=== PATIENT | female | born 1955 ===

== ENCOUNTER → 2024-12-17 | Outpatient (CLI) | payer OTHER ==
[2024-12-17 13:57] LABS: BASOPHILS ABSOLUTE AUTO 0.05 K/mm3 (0.00-0.23); BASOPHILS PERCENT AUTO 0 % (0-2); EOSINOPHILS ABSOLUTE AUTO 0.01 K/mm3 (0.00-0.68); EOSINOPHILS PERCENT AUTO 0 % (0-6); Hematocrit 41.5 % (33.0-51.0); Hemoglobin 14.3 g/dL (11.5-16.0); IMMATURE GRAN PERCENT AUTO 1 % (0-1); LYMPHOCYTES PERCENT AUTO 7 % (21-46); MONOCYTES ABSOLUTE AUTO 0.82 K/mm3 (0.16-1.47); MONOCYTES PERCENT AUTO 7 % (4-13); Mean Corpuscular HGB 29.9 pg (26.0-34.0); Mean Corpuscular HGB Conc 34.5 g/dL (31.5-36.5); Mean Corpuscular Volume 87 fL (80-100); Mean Platelet Volume 11.3 fL (9.1-12.4); NEUTROPHILS ABSOLUTE AUTO 10.49 K/mm3 (1.96-9.15); NEUTROPHILS PERCENT AUTO 85 % (41-73); Platelet Count 282 K/mm3 (150-400); RDW Coefficient Variation 12.1 % (11.7-14.2); RDW Standard Deviation 38.7 fL (35.1-46.3); Red Blood Cell Count 4.78 M/mm3 (3.80-5.20); White Blood Cell Count 12.37 K/mm3 (4.00-11.30)
[2024-12-17 14:12] LABS: Albumin, Blood 2.8 g/dL (3.4-5.0); Albumin/Globulin Ratio 0.6 (0.8-1.8); Bilirubin, Total 0.8 mg/dL (0.1-1.0); Bun/Creatinine Ratio 9.6 (12.0-20.0); Calcium, Blood 9.6 mg/dL (8.5-10.1); Creatinine, Blood 1.04 mg/dL (0.40-1.00); Globulin, Blood 4.4 g/dL (2.2-4.0); Total Protein, Blood 7.2 g/dL (6.4-8.2)
== END ==
LOC: LAB SHORT 13:50 → LAB 13:50
PROVIDERS: Family Medicine
DX: N39.0 Urinary tract infection, site not specified (principal); R53.83 Other fatigue
CPT/HCPCS: 80053; 85025; 87086

== ENCOUNTER → 2025-01-28 | Outpatient (CLI) | payer OTHER ==
[2025-01-28 21:59] LABS: Creatinine, Urine Random 240.0 mg/dL (27.00-270.00); Microalb/Creat Ratio UR, Rand 10.917 mg/g (0.000-30.000); Microalbumin, Random Urine 26.2 mg/L (0.000-20.000)
== END ==
LOC: LAB 18:04 → LAB SHORT 18:04
PROVIDERS: Family Medicine
DX: E11.36 Type 2 diabetes mellitus with diabetic cataract (principal); E11.42 Type 2 diabetes mellitus with diabetic polyneuropathy; E11.59 Type 2 diabetes mellitus with other circulatory complications
CPT/HCPCS: 82043; 82570

== ENCOUNTER → 2025-03-28 | Outpatient (CLI) | payer OTHER ==
[~2025-03-28] MED LIST: ASPI81CH PO; ATOR10 PO; ATOR40TA PO; Acetaminophen325 M1 PO; BUPROPION XL150 M1 PO; CENTRUM SILVER1 EAC2 PO; CLOP75 PO; FURO20 PO; GLUC500 PO; LISI20 PO; METF500 PO; METO25 PO; PIOG30 PO; Prinivil10 MG PO; TOUJEO MAX300 UNIT/2 SC
[2025-03-28 13:11] LABS: BASOPHILS ABSOLUTE AUTO 0.07 K/mm3 (0.00-0.23); BASOPHILS PERCENT AUTO 1 % (0-2); EOSINOPHILS ABSOLUTE AUTO 0.32 K/mm3 (0.00-0.68); EOSINOPHILS PERCENT AUTO 2 % (0-6); Hematocrit 44.9 % (33.0-51.0); Hemoglobin 14.4 g/dL (11.5-16.0); IMMATURE GRAN ABSOLUTE AUTO 0.09 K/mm3 (0.00-0.10); IMMATURE GRAN PERCENT AUTO 1 % (0-1); LYMPHOCYTES ABSOLUTE AUTO 1.25 K/mm3 (0.84-5.20); LYMPHOCYTES PERCENT AUTO 9 % (21-46); MONOCYTES ABSOLUTE AUTO 1.15 K/mm3 (0.16-1.47); MONOCYTES PERCENT AUTO 8 % (4-13); Mean Corpuscular HGB Conc 32.1 g/dL (31.5-36.5); Mean Corpuscular Volume 84 fL (80-100); NEUTROPHILS ABSOLUTE AUTO 10.97 K/mm3 (1.96-9.15); NEUTROPHILS PERCENT AUTO 79 % (41-73); NRBC ABSOLUTE 0.00 K/mm3 (0.00-0.02); NRBC Auto 0.0 /100 WBC (0.0-0.2); Platelet Count 281 K/mm3 (150-400); RDW Coefficient Variation 18.1 % (11.7-14.2); RDW Standard Deviation 52.6 fL (35.1-46.3)
[2025-03-28 14:08] LABS: Alanine Aminotransfer (ALT/SGP 29.0 U/L (12-78); Albumin, Blood 2.2 g/dL (3.4-5.0); Albumin/Globulin Ratio 0.6 (0.8-1.8); Anion Gap 12.0 mmol/L (3-11); Aspartate Aminotrans (AST/SGOT 66.0 U/L (12-37); Bilirubin, Total 2.8 mg/dL (0.1-1.0); Blood Urea Nitrogen 13.0 mg/dL (8-24); CO2, Blood 27.0 mmol/L (21-32); Calcium, Blood 8.7 mg/dL (8.5-10.1); Chloride, Blood 97.0 mmol/L (98-108); Creatinine, Blood 0.66 mg/dL (0.40-1.00); Globulin, Blood 3.9 g/dL (2.2-4.0); Glucose, Blood 178.0 mg/dL (70-99); Potassium, Blood 3.8 mmol/L (3.5-5.5); Sodium, Blood 132.0 mmol/L (136-145); Total Protein, Blood 6.1 g/dL (6.4-8.2)
== END ==
LOC: LAB SHORT 12:40 → LAB 12:40
PROVIDERS: Internal Medicine Hematology & Oncology
DX: C25.1 Malignant neoplasm of body of pancreas (principal)
CPT/HCPCS: 80053; 85025; 86301

== ENCOUNTER 2025-04-01 19:59 | Observation (INO) | payer OTHER ==
[~2025-04-01] VITALS: Ht 165.1 cm; Wt 106.5 kg
[2025-04-01] MEDS ORDERED: NS 1,000 ML IV SCH (21:25)
[2025-04-01 23:06] LABS: BASOPHILS ABSOLUTE AUTO 0.06 K/mm3 (0.00-0.23); BASOPHILS PERCENT AUTO 0 % (0-2); EOSINOPHILS ABSOLUTE AUTO 0.01 K/mm3 (0.00-0.68); EOSINOPHILS PERCENT AUTO 0 % (0-6); Hematocrit 45.3 % (33.0-51.0); Hemoglobin 14.5 g/dL (11.5-16.0); IMMATURE GRAN ABSOLUTE AUTO 0.17 K/mm3 (0.00-0.10); IMMATURE GRAN PERCENT AUTO 1 % (0-1); LYMPHOCYTES ABSOLUTE AUTO 0.64 K/mm3 (0.84-5.20); LYMPHOCYTES PERCENT AUTO 4 % (21-46); MONOCYTES ABSOLUTE AUTO 0.65 K/mm3 (0.16-1.47); MONOCYTES PERCENT AUTO 4 % (4-13); Mean Corpuscular HGB Conc 32.0 g/dL (31.5-36.5); Mean Corpuscular Volume 84 fL (80-100); NEUTROPHILS ABSOLUTE AUTO 16.58 K/mm3 (1.96-9.15); NEUTROPHILS PERCENT AUTO 92 % (41-73); NRBC ABSOLUTE 0.00 K/mm3 (0.00-0.02); NRBC Auto 0.0 /100 WBC (0.0-0.2); RDW Coefficient Variation 20.6 % (11.7-14.2); RDW Standard Deviation 58.3 fL (35.1-46.3)
[2025-04-01 23:08] LABS: pH Blood Venous 7.46 (7.34-7.37)
[2025-04-02 00:24] LABS: Magnesium, Blood 2.1 mg/dL (1.6-2.4); Thyroid Stimulating Hormone 1.280 uIU/mL (0.360-4.800)
[2025-04-02 00:27] LABS: Anion Gap 14 mmol/L (3-11); Blood Urea Nitrogen 17 mg/dL (8-24); CO2, Blood 22 mmol/L (21-32); Calcium, Blood 8.4 mg/dL (8.5-10.1); Chloride, Blood 98 mmol/L (98-108); Creatinine, Blood 0.78 mg/dL (0.40-1.00); Glucose, Blood 327 mg/dL (70-99); Potassium, Blood 4.7 mmol/L (3.5-5.5); Sodium, Blood 129 mmol/L (136-145)
[2025-04-02 02:27] LABS: Acetaminophen, Random <2.0 ug/mL (10.0-30.0)
[2025-04-02 02:31] LABS: Salicylate <1.7 mg/dL (2.8-20.0)
[2025-04-02 03:10] LABS: Uric Acid, Blood 8.2 mg/dL (2.6-6.0)
[2025-04-02] MEDS ORDERED: NS 1,000 ML IV SCH (03:55)
[2025-04-02] MEDS ORDERED: FLU VACC TS2025-26(6MOS UP)/PF 45 MCG/0.5 ML SYRINGE IM ONE (03:55)
[2025-04-02] MEDS ORDERED: Enoxaparin 40 MG/0.4 ML SYR SC SCH (09:00)
[2025-04-02 12:48] LABS: Anion Gap 11.0 mmol/L (3-11); Blood Urea Nitrogen 19.0 mg/dL (8-24); CO2, Blood 25.0 mmol/L (21-32); Calcium, Blood 7.8 mg/dL (8.5-10.1); Chloride, Blood 100.0 mmol/L (98-108); Creatinine, Blood 0.77 mg/dL (0.40-1.00); Glucose, Blood 279.0 mg/dL (70-99); Potassium, Blood 4.5 mmol/L (3.5-5.5); Sodium, Blood 131.0 mmol/L (136-145)
[2025-04-02 15:10] VITALS: BP 111/58
[2025-04-02 18:05] LABS: BASOPHILS ABSOLUTE AUTO 0.02 K/mm3 (0.00-0.23); BASOPHILS PERCENT AUTO 0 % (0-2); EOSINOPHILS ABSOLUTE AUTO 0.07 K/mm3 (0.00-0.68); EOSINOPHILS PERCENT AUTO 1 % (0-6); Hematocrit 39.8 % (33.0-51.0); Hemoglobin 12.6 g/dL (11.5-16.0); IMMATURE GRAN ABSOLUTE AUTO 0.20 K/mm3 (0.00-0.10); IMMATURE GRAN PERCENT AUTO 1 % (0-1); LYMPHOCYTES ABSOLUTE AUTO 0.49 K/mm3 (0.84-5.20); LYMPHOCYTES PERCENT AUTO 3 % (21-46); MONOCYTES ABSOLUTE AUTO 0.23 K/mm3 (0.16-1.47); MONOCYTES PERCENT AUTO 2 % (4-13); Mean Corpuscular HGB Conc 31.7 g/dL (31.5-36.5); Mean Corpuscular Volume 86 fL (80-100); NEUTROPHILS ABSOLUTE AUTO 13.45 K/mm3 (1.96-9.15); NEUTROPHILS PERCENT AUTO 93 % (41-73); NRBC ABSOLUTE 0.00 K/mm3 (0.00-0.02); NRBC Auto 0.0 /100 WBC (0.0-0.2); Platelet Count 118 K/mm3 (150-400); RDW Coefficient Variation 21.0 % (11.7-14.2); RDW Standard Deviation 61.5 fL (35.1-46.3)
[2025-04-02 18:46] LABS: Anion Gap 8.0 mmol/L (3-11); Blood Urea Nitrogen 23.0 mg/dL (8-24); CO2, Blood 23.0 mmol/L (21-32); Calcium, Blood 7.6 mg/dL (8.5-10.1); Chloride, Blood 103.0 mmol/L (98-108); Creatinine, Blood 0.76 mg/dL (0.40-1.00); Glucose, Blood 255.0 mg/dL (70-99); Potassium, Blood 4.1 mmol/L (3.5-5.5); Sodium, Blood 130.0 mmol/L (136-145)
--- NOTE | 2025-04-02 19:30 | NUR ---
ASSUMED CARE OF PT. PT ADMIT FROM ER, CURRENTLY ASLEEP AND NOT ABLE TO ANSWER QUESTIONS. AT BEDSIDE TO ASSIST WITH ADMIT, PURWIC WITH NO OUTPUT. ASSESSMENT DONE. THROUGHOUT THE DAY MENTATION IMPROVED AND PT WAS ABLE TO MAKE NEEDS KNOWN, NO C/O PAIN NO DISTRESS BUT PT VERY LETHARGIC. ENC PT TO URINATE AND EDUCATED ABOUT VENEGAS CATH. ONCE PT WAS NOT ABLE TO URINATE BLADDER SCAN SHOWED > THAN 500MLS, VENEGAS WAS THEN PLACED, 550ML CLR ORANGE URING , PT MICHELLE WELL. DINNER TIME PT WAS MORE AWAKE AND FEEDING SELF, CALL PLACED TO HOSPITALIST FOR ADDITONAL ORDERS
[2025-04-02 19:31] VITALS: BP 114/63
--- NOTE | 2025-04-02 23:29 | NUR ---
URINALYSIS WAS CANCELLED BY LAB D/T HAVING NOT YET BEEN COLLECTED. VENEGAS CATHETER WAS INSERTED ON DAY SHIFT FOR RETENTION. PROVIDER (AMADA RAYMOND) MADE AWARE AND AUTHORIZIED CANCELLATION OF URINE SPECIMN COLLECTION/UA.
[2025-04-02 23:51] VITALS: BP 126/73
[2025-04-03 03:12] VITALS: BP 105/64
--- NOTE | 2025-04-03 04:50 | NUR ---
SHIFT SUMMARY PATIENT IS ALERT AND ORIENTED X3-4, OCCASIONAL FORGETFULNESS WITH REMINDERS PROVIDED. PLEASANT AND RECEPTIVE WITH CARE. NO ACUTE CHANGES DURING THIS SHIFT. SELF REPOSITIONING. BED LOCKED AND IN LOWEST POSITION. CALL LIGHT WITHIN REACH.
[2025-04-03 05:00] LABS: BASOPHILS ABSOLUTE AUTO 0.01 K/mm3 (0.00-0.23); BASOPHILS PERCENT AUTO 0 % (0-2); EOSINOPHILS ABSOLUTE AUTO 0.30 K/mm3 (0.00-0.68); EOSINOPHILS PERCENT AUTO 2 % (0-6); Hematocrit 36.6 % (33.0-51.0); Hemoglobin 11.8 g/dL (11.5-16.0); IMMATURE GRAN ABSOLUTE AUTO 0.21 K/mm3 (0.00-0.10); IMMATURE GRAN PERCENT AUTO 1 % (0-1); LYMPHOCYTES ABSOLUTE AUTO 0.48 K/mm3 (0.84-5.20); LYMPHOCYTES PERCENT AUTO 3 % (21-46); MONOCYTES ABSOLUTE AUTO 0.15 K/mm3 (0.16-1.47); MONOCYTES PERCENT AUTO 1 % (4-13); Mean Corpuscular HGB Conc 32.2 g/dL (31.5-36.5); Mean Corpuscular Volume 83 fL (80-100); NEUTROPHILS ABSOLUTE AUTO 13.43 K/mm3 (1.96-9.15); NEUTROPHILS PERCENT AUTO 92 % (41-73); NRBC ABSOLUTE 0.00 K/mm3 (0.00-0.02); NRBC Auto 0.0 /100 WBC (0.0-0.2); Platelet Count 129 K/mm3 (150-400); RDW Coefficient Variation 20.5 % (11.7-14.2); RDW Standard Deviation 59.7 fL (35.1-46.3)
[2025-04-03 05:43] LABS: Alanine Aminotransfer (ALT/SGP 32.0 U/L (12-78); Albumin, Blood 1.9 g/dL (3.4-5.0); Albumin/Globulin Ratio 0.6 (0.8-1.8); Anion Gap 11.0 mmol/L (3-11); Aspartate Aminotrans (AST/SGOT 89.0 U/L (12-37); Bilirubin, Total 5.0 mg/dL (0.1-1.0); Blood Urea Nitrogen 31.0 mg/dL (8-24); CO2, Blood 25.0 mmol/L (21-32); Calcium, Blood 7.6 mg/dL (8.5-10.1); Chloride, Blood 101.0 mmol/L (98-108); Creatinine, Blood 1.04 mg/dL (0.40-1.00); Globulin, Blood 3.0 g/dL (2.2-4.0); Glucose, Blood 269.0 mg/dL (70-99); Potassium, Blood 4.3 mmol/L (3.5-5.5); Sodium, Blood 133.0 mmol/L (136-145); Total Protein, Blood 4.9 g/dL (6.4-8.2)
[2025-04-03] MEDS ORDERED: Insulin Regular 100 UNIT/ML 10ML Vial SC SCH (07:30)
[2025-04-03 07:55] VITALS: BP 125/62
--- NOTE | 2025-04-03 08:53 | NUR ---
DR VANCE OF PTS VS THIS MORNING. BEDSIDE PALLIATIVE CONSULT TO DISCUSS GOALS OF CARE TO TAKE PLACE AT BEDSIDE.
--- NOTE | 2025-04-03 09:10 | NUR ---
GOALS OF CARE: JOINT VISIT WITH , PT, SPOUSE, AND THIS PC RN. PROVIDER REVIEWED CURRENT DISEASE PROCESS AND EXPECTED TRAJECTORY. PROVIDER RECAPPED HER PREVIOUS CONVERSATION WITH PT'S PCP WITH PT AND SPOUSE (EMMANUEL). EMMANUEL REPORTS, "SHE WAS TEETERING ON CHEMO OR NOT BEFORE THIS." EMMANUEL DOES NOT BELIEVE CHEMO IS PROVIDING ANY BENEFIT AT THIS TIME. BUDDY IS LAYING WITH HER EYES CLOSED. SHE STATED SHE WANTS TO BE COMFORTABLE. SHE DOES NOT WANT ANYMORE CURRATIVE MEASURES. VERBAL ORDERS OBTAINED FOR COMFORT CARE TO INCLUDE HEMORRHOID TX. GENTLE EDUCATION ON HOME HOSPICE, ADULT FOSTER HOMES AND LTC. PC TO REMAIN AVAILABLE NEEDED.
[2025-04-03] MEDS ORDERED: Magnesium Hydroxide Conc 10 ML UDC PO ONE (10:25)
[2025-04-03] MEDS ORDERED: Acetaminophen 160MG / 5ML 10.15 UDC PO PRN (10:25)
[2025-04-03] MEDS ORDERED: Atropine Sulfate 1% Opth Soln 2ML BTL SL PRN (10:25)
[2025-04-03] MEDS ORDERED: Magnesium Hydroxide Conc 10 ML UDC PO PRN (10:25)
[2025-04-03] MEDS ORDERED: Morphine Sulfate 20 MG/1ML 1 ML Oral Syringe PO PRN (10:50)
--- NOTE | 2025-04-03 11:39 | NUR ---
Spiritual care visit conducted. The patient is lying in bed and alert. Her spouse, Eduardo is bedside. Eduardo tells me about the her medical history, and then encourages the patient to talk with this Field Clerk. She tells me that her main thaoughts focus on "the end." I explore her beliefs about this event and she explains that she is a Hoahaoism and wants to see loved ones who have before her. We also look at the Biblical descriptions of the afterlife. She says that her greatest fear leaving Eduardo and her family. Eduardo explains that her brother and sister, son and best friend will all be arriving soon. We talk about the beauty and weight of each day, minute and breath. I normalize her fears and feeling, and provided therapeutic listening and prayer. The patient responded well and showed signs of greater peace. I will continue to remain available to patient and fmaily.
[2025-04-03] MEDS ORDERED: Phenyleph/Mineral Oil/Petrolat 1 APPLIC/57 GM Tube PR ONE (13:20)
[2025-04-03] MEDS ORDERED: LIDOCAINE 2.5%/PRILOCAINE 2.5% CREAM 30 GM TUBE TOP ONE (13:20)
--- NOTE | 2025-04-03 17:46 | NUR ---
PT HAD A PALLAITIVE CONSULT THIS AM AND WAS SWITCHED TO COMFORT CARE. PAIN AND AIR HUNGER TX PER EMAR. PT REPORTS CONSTIPATION WELL THAT HAS BEEN TREATED PER EMAR. PT WAS USING BEDPAN BUT REPORTS IT BEING "UNCONFORTABLE" AND HAS SINCE BEEN INCONTINENT. UNABLE TO USE CALL LIGHT APPROPRIATELY. A/Ox3 THIS MORNING BUT PATIENT HAS DETERIORATED QUICKLY T/O SHIFT AND IS NOW AQ/Ox1-2.
--- NOTE | 2025-04-04 04:58 | NUR ---
SHIFT SUMMARY 70 YR F ON COMFORT CARE. PT HAS BEEN VERY SLOW TO RESPOND TO VERBAL STIMULI THIS SHIFT. EVENING ORAL MEDS HELD FOR SWALLOW SAFETY CONCERNS. IV PAIN MEDS AND REPOSITIONING FOR COMFORT. BEDTIME CBG DID NOT REQUIRE INSULIN COVERAGE PER SLIDING SCALE. PT HAS SLEPT FOR MOST OF THIS SHIFT. BED IS IN LOW POSITION AND CALL LIGHT IN REACH.
--- NOTE | 2025-04-04 08:29 | NUR ---
PT MEDICATED PER EMAR FOR AIR HUNGER. NON RESPONSIVE TO VERBAL STIMULI. LOCALIZING PAIN WHEN REPOSITIONED. PT EYES JAUNDICE. LEFT MESSAGE WITH PALLIATIVE CARE. SPOUSE AT BEDSIDE.
[2025-04-04] MEDS ORDERED: Morphine Sulfate 20 MG/1ML 1 ML Oral Syringe SL PRN (09:05)
--- NOTE | 2025-04-04 09:12 | NUR ---
Steve SANCHEZ. PT UNRESPONSIVE. DR. BARROW NOTIFIED. PER DR. BARROW OK TO INCREASE ROXINOL 5-20 MG Q 1HR PRN. SPOUSE AT BEDSIDE. DISCUSSED PT APPEARS TO BE IMMINENT AT THIS TIME AND TO NOTIFY FAMILY AND FRIENDS IF HE WISHES. WILL UPDATE PALLIATIVE CARE WHEN AVAILABLE
--- NOTE | 2025-04-04 12:08 | NUR ---
"Spiritual Care | Comfort Care - Nurse Request Pt. is on comfort care and is not responsive. Many family members are at bedside. Facilitated some life review. Prayed palliatively for both the Pt. and family. Family verbalized gratitude for the spiritual care support. Pts. nurse will notify this client support representative if the Pt. further transitions."
--- NOTE | 2025-04-04 14:31 | NUR ---
PALLIATIVE CARE RN CALLED TO BEDSIDE. PT BREATHING SLOWING. PT MEDICATED PER EMAR.
--- NOTE | 2025-04-04 15:18 | NUR ---
SUPPORTIVE COMFORT CARE VISIT. MET WITH MULTIPULE FAMILY MEMBERS. PROVIDED GENTLE EDUCATION RE: S/SX OF EOL. ASSISTED WITH REPOSITIONING, COMFORT BATH. BEDSIDE RN ADMINISTER TYLENOL SUPPOSITORY AND PO ATIVAN. PT APPEARS COMFORTABLE AT END OF VISIT. PC TO REMAIN AVAILABLE NEEDED.
--- NOTE | 2025-04-04 17:23 | NUR ---
PT TOD 1415. FAMILY AT BEDSIDE. SLIP OPERATOR AND DR. BARROW NOTIFIED. PASTORIAL CARE CURRENTLY AT BEDSIDE.
--- NOTE | 2025-04-04 17:54 | NUR ---
"Spiritual Care | EOL Pt. Passed TOD approx. 171. This manager lsw was called ot bedside. Facilitated condolences and provided pastoral care. Prayers for the family and a blessing for the Pt. are given as is EOL Education. Family verbalized gratitude for the spiritual care visit."
== END 2025-04-04 17:15 ==
LOC: ER 19:59 → ERHOLD 20:00 → MEDS 04-02 15:03
PROVIDERS: Emergency Medicine; Family Medicine; ADMIT Internal Medicine
DX: G93.40 Encephalopathy, unspecified (principal); I11.0 Hypertensive heart disease with heart failure; I50.32 Chronic diastolic (congestive) heart failure; E11.65 Type 2 diabetes mellitus with hyperglycemia; C25.9 Malignant neoplasm of pancreas, unspecified; J90 Pleural effusion, not elsewhere classified; R91.8 Other nonspecific abnormal finding of lung field; I69.354 Hemiplegia and hemiparesis following cerebral infarction affecting left non-dominant side; C78.00 Secondary malignant neoplasm of unspecified lung; C78.7 Secondary malignant neoplasm of liver and intrahepatic bile duct; Z66 Do not resuscitate; Z79.02 Long term (current) use of antithrombotics/antiplatelets; Z79.4 Long term (current) use of insulin; Z79.84 Long term (current) use of oral hypoglycemic drugs; Z79.899 Other long term (current) drug therapy
CPT/HCPCS: 36415; 51702; 51798; 70450; 71045; 80048; 80053; 82010; 82140; 82607; 82803; 82947; 83690; 83735; 84439; 84443; 84550; 85025; 93005; 93010; 96360; 96361; 96372; 96372-59; 99285-25; A6590; A9270; G0378; G0480; J1650; J1815; J7030